=== PATIENT | male | born 1935 | race Caucasian/White ===

== ENCOUNTER 2021-05-18 14:03 | Emergency (ER) | payer OTHER ==
[~2021-05-18] VITALS: Ht 175.3 cm; Wt 70.3 kg
[2021-05-18 14:38] LABS: BASOPHILS ABSOLUTE AUTO 0.03 K/mm3 (0.00-0.23); BASOPHILS PERCENT AUTO 0 % (0-2); EOSINOPHILS ABSOLUTE AUTO 0.29 K/mm3 (0.00-0.68); EOSINOPHILS PERCENT AUTO 4 % (0-6); Hematocrit 43.2 % (37.0-53.0); Hemoglobin 14.5 g/dL (13.5-17.5); IMMATURE GRAN ABSOLUTE AUTO 0.02 K/mm3 (0.00-0.10); IMMATURE GRAN PERCENT AUTO 0 % (0-1); LYMPHOCYTES ABSOLUTE AUTO 1.45 K/mm3 (0.84-5.20); LYMPHOCYTES PERCENT AUTO 21 % (21-46); MONOCYTES PERCENT AUTO 13 % (4-13); Mean Corpuscular HGB 31.5 pg (26.0-34.0); Mean Corpuscular HGB Conc 33.6 g/dL (31.5-36.5); Mean Corpuscular Volume 94 fL (80-100); Mean Platelet Volume 9.4 fL (9.1-12.4); NEUTROPHILS PERCENT AUTO 62 % (41-73); Platelet Count 284 K/mm3 (150-400); RDW Coefficient Variation 13.5 % (11.7-14.2); White Blood Cell Count 6.99 K/mm3 (4.00-11.30)
[2021-05-18 15:05] LABS: Alanine Aminotransfer (ALT/SGP 36 U/L (12-78); Albumin, Blood 3.2 g/dL (3.4-5.0); Albumin/Globulin Ratio 0.7 (0.8-1.8); Alk Phos 98 U/L (50-136); Anion Gap 6 mmol/L (6-16); Aspartate Aminotrans (AST/SGOT 69 U/L (12-37); Bilirubin, Total 0.5 mg/dL (0.1-1.0); Blood Urea Nitrogen 23 mg/dL (8-24); Bun/Creatinine Ratio 38.7 (12.0-20.0); CO2, Blood 28 mmol/L (21-32); Calcium, Blood 9.2 mg/dL (8.5-10.1); Chloride, Blood 107 mmol/L (98-108); Creatinine, Blood 0.59 mg/dL (0.60-1.20); Globulin, Blood 4.3 g/dL (2.2-4.0); Glomerular Filtration Rate >60 (60-); Glucose, Blood 108 mg/dL (70-99); Potassium, Blood 3.7 mmol/L (3.5-5.5); Sodium, Blood 141 mmol/L (136-145); Total Protein, Blood 7.5 g/dL (6.4-8.2)
[2021-05-18 15:20] LABS: CPK Creatine Kinase 1453 U/L (39-308)
[2021-05-18 15:43] LABS: Creatine Kinase MB 35.9 ng/mL (0.0-3.6); Creatine Kinase MB Index 2.5 (0.0-4.0)
[2021-05-18 20:55] LABS: Source, Urine Clean Catch
[2021-05-18 20:58] LABS: Appearance, Urine Clear (Clear); Bilirubin, Urine Neg (Neg); Blood, Urine Neg (Neg); Color, Urine Yellow (P-Yellow); Glucose Qualitative, Urine Neg (Neg); Ketones, Urine 2+ (Neg); Leukocyte Esterase, Urine Neg (Neg); Nitrite, Urine Neg (Neg); Protein, Urine 1+ (Neg); Specific Gravity, Urine 1.025 (1.003-1.022); Urobilinogen, Urine 1+ (Normal)
== END 2021-05-18 22:00 | disposition home or self-care (01) ==
LOC: ER 14:03
PROVIDERS: Physician Assistant
DX: M54.9 Dorsalgia, unspecified (principal); E03.9 Hypothyroidism, unspecified; R62.7 Adult failure to thrive
CPT/HCPCS: 80053; 82550; 82553; 83690; 84484; 85025; 93005; 93010; 99283-25; J7030

== ENCOUNTER 2021-05-29 14:28 | Emergency (ER) | payer OTHER ==
[~2021-05-29] VITALS: Ht 175.3 cm; Wt 72.6 kg
[2021-05-29 15:30] LABS: BASOPHILS ABSOLUTE AUTO 0.04 K/mm3 (0.00-0.23); BASOPHILS PERCENT AUTO 1 % (0-2); EOSINOPHILS ABSOLUTE AUTO 0.19 K/mm3 (0.00-0.68); EOSINOPHILS PERCENT AUTO 3 % (0-6); Hematocrit 41.9 % (37.0-53.0); Hemoglobin 13.9 g/dL (13.5-17.5); IMMATURE GRAN ABSOLUTE AUTO 0.02 K/mm3 (0.00-0.10); IMMATURE GRAN PERCENT AUTO 0 % (0-1); LYMPHOCYTES ABSOLUTE AUTO 1.76 K/mm3 (0.84-5.20); LYMPHOCYTES PERCENT AUTO 30 % (21-46); MONOCYTES ABSOLUTE AUTO 0.66 K/mm3 (0.16-1.47); MONOCYTES PERCENT AUTO 11 % (4-13); Mean Corpuscular HGB 31.7 pg (26.0-34.0); Mean Corpuscular HGB Conc 33.2 g/dL (31.5-36.5); Mean Corpuscular Volume 96 fL (80-100); Mean Platelet Volume 9.6 fL (9.1-12.4); NEUTROPHILS ABSOLUTE AUTO 3.21 K/mm3 (1.96-9.15); NEUTROPHILS PERCENT AUTO 55 % (41-73); Platelet Count 312 K/mm3 (150-400); RDW Coefficient Variation 13.6 % (11.7-14.2); RDW Standard Deviation 48.4 fL (35.1-46.3); Red Blood Cell Count 4.38 M/mm3 (4.30-5.90); White Blood Cell Count 5.88 K/mm3 (4.00-11.30)
[2021-05-29 15:49] LABS: Alanine Aminotransfer (ALT/SGP 32 U/L (12-78); Albumin, Blood 3.1 g/dL (3.4-5.0); Albumin/Globulin Ratio 0.8 (0.8-1.8); Alk Phos 93 U/L (50-136); Anion Gap 4 mmol/L (6-16); Aspartate Aminotrans (AST/SGOT 23 U/L (12-37); Bilirubin, Total 0.5 mg/dL (0.1-1.0); Blood Urea Nitrogen 21 mg/dL (8-24); Bun/Creatinine Ratio 35.2 (12.0-20.0); CO2, Blood 28 mmol/L (21-32); Calcium, Blood 8.9 mg/dL (8.5-10.1); Chloride, Blood 108 mmol/L (98-108); Globulin, Blood 3.8 g/dL (2.2-4.0); Glomerular Filtration Rate >60 (60-); Glucose, Blood 105 mg/dL (70-99); Potassium, Blood 3.6 mmol/L (3.5-5.5); Sodium, Blood 140 mmol/L (136-145); Thyroid Stimulating Hormone 0.963 uIU/mL (0.360-4.800); Total Protein, Blood 6.9 g/dL (6.4-8.2)
[2021-05-29 16:37] LABS: Source, Urine Catheter
[2021-05-29 16:51] LABS: Appearance, Urine Clear (Clear); Bilirubin, Urine Neg (Neg); Blood, Urine Neg (Neg); Color, Urine Yellow (P-Yellow); Glucose Qualitative, Urine Neg (Neg); Ketones, Urine 2+ (Neg); Leukocyte Esterase, Urine 1+ (Neg); Nitrite, Urine Neg (Neg); Protein, Urine Neg (Neg); Urobilinogen, Urine NORM (Normal); pH, Urine 6.5 (5.0-8.0)
[2021-05-29 17:06] LABS: Bacteria Mod /hpf; Calcium Oxalate Crystals Mod /hpf; Red Blood Cells, Urine Not Seen /hpf (0-2); Squamous Epithelial Cells Rare /hpf (Few); White Blood Cells, Urine 0-2 /hpf (0-5)
[2021-05-29 17:07] LABS: Hyaline Casts 0-2 /lpf (0-2); Mucus Light (0-Heavy)
[2021-05-29] MEDS ORDERED: MINOCYCLINE HC100 M2 PO (17:49)
== END 2021-05-29 18:20 | disposition home or self-care (01) ==
LOC: ER 14:28
PROVIDERS: Emergency Medicine
DX: M54.2 Cervicalgia (principal); M54.5 Low back pain; E03.9 Hypothyroidism, unspecified
CPT/HCPCS: 70450; 72100; 72125; 80053; 81001; 84443; 85025; 87070; 87075; 87086; 87205; 93005; 93010; 99284-25; A9270

== ENCOUNTER 2023-02-23 10:57 | Inpatient (IN) | payer OTHER ==
[~2023-02-23] VITALS: Ht 172.7 cm; Wt 64.6 kg
[~2023-02-23 10:57] MED LIST: MINOCYCLINE HC100 M2 PO
[2023-02-23 11:54] LABS: Source, Urine Straight Cath
[2023-02-23 12:05] LABS: Appearance, Urine Clear (Clear); Bilirubin, Urine Neg (Neg); Blood, Urine 5+ (Neg); Color, Urine Amber (P-Yellow); Glucose Qualitative, Urine Neg (Neg); Ketones, Urine 4+ (Neg); Leukocyte Esterase, Urine Neg (Neg); Nitrite, Urine Neg (Neg); Protein, Urine 2+ (Neg); Specific Gravity, Urine 1.025 (1.003-1.022); Urobilinogen, Urine NORM (Normal)
[2023-02-23 12:13] LABS: Bacteria Few /hpf; Red Blood Cells, Urine TNTC /hpf (0-2); Squamous Epithelial Cells Not Seen /hpf (Few); Transitional Epithelial Cells Few /hpf (0-Rare); White Blood Cells, Urine 0-2 /hpf (0-5)
[2023-02-23 13:09] LABS: Influenza A, PCR NEGATIVE (NEGATIVE); Influenza B, PCR NEGATIVE (NEGATIVE); Resp Syncytial Virus, PCR NEGATIVE (NEGATIVE); SARS-Cov-2 (COVID-19) PCR, MMC NEGATIVE (NEGATIVE)
[2023-02-23 13:48] LABS: BASOPHILS ABSOLUTE AUTO 0.04 K/mm3 (0.00-0.23); BASOPHILS PERCENT AUTO 1 % (0-2); Creatine Kinase MB 33.2 ng/mL (0.0-3.6); EOSINOPHILS ABSOLUTE AUTO 0.03 K/mm3 (0.00-0.68); EOSINOPHILS PERCENT AUTO 0 % (0-6); Hematocrit 46.4 % (37.0-53.0); Hemoglobin 16.2 g/dL (13.5-17.5); IMMATURE GRAN ABSOLUTE AUTO 0.07 K/mm3 (0.00-0.10); IMMATURE GRAN PERCENT AUTO 1 % (0-1); LYMPHOCYTES ABSOLUTE AUTO 1.11 K/mm3 (0.84-5.20); LYMPHOCYTES PERCENT AUTO 14 % (21-46); MONOCYTES ABSOLUTE AUTO 0.68 K/mm3 (0.16-1.47); MONOCYTES PERCENT AUTO 9 % (4-13); Mean Corpuscular HGB 31.4 pg (26.0-34.0); Mean Corpuscular HGB Conc 34.9 g/dL (31.5-36.5); Mean Corpuscular Volume 90 fL (80-100); NEUTROPHILS ABSOLUTE AUTO 5.86 K/mm3 (1.96-9.15); NEUTROPHILS PERCENT AUTO 75 % (41-73); RDW Coefficient Variation 13.9 % (11.7-14.2); RDW Standard Deviation 46.3 fL (35.1-46.3); Red Blood Cell Count 5.16 M/mm3 (4.30-5.90); White Blood Cell Count 7.79 K/mm3 (4.00-11.30)
[2023-02-23 13:54] LABS: Free Thyroxine 1.32 ng/dL (0.70-1.60); Thyroid Stimulating Hormone 1.93 uIU/mL (0.360-4.800)
[2023-02-23 14:19] LABS: Platelet Count 371 K/mm3 (150-400)
[2023-02-23 14:30] LABS: Albumin, Blood 2.7 g/dL (3.4-5.0); Albumin/Globulin Ratio 0.6 (0.8-1.8); Bilirubin, Total 0.7 mg/dL (0.1-1.0); Bun/Creatinine Ratio 45.5 (12.0-20.0); Calcium, Blood 8.8 mg/dL (8.5-10.1); Creatine Kinase MB Index 2.6 (0.0-4.0); Creatinine, Blood 0.53 mg/dL (0.60-1.20); Globulin, Blood 4.3 g/dL (2.2-4.0); Potassium, Blood 3.7 mmol/L (3.5-5.5)
[2023-02-23] MEDS ORDERED: FLOMAX0.4 MG (18:19)
[2023-02-23] MEDS ORDERED: LEVSOD75 PO (18:19)
[2023-02-23 19:30] VITALS: BP 107/76
[2023-02-24] MEDS ORDERED: Vitamin D1000 UNI1 PO (02:23)
[2023-02-24] MEDS ORDERED: OMEGA-3 FISH O1 EAC6 PO (02:23)
[2023-02-24] MEDS ORDERED: POTA10T PO (02:23)
[2023-02-24] MEDS ORDERED: OMEP20ER PO (02:24)
[2023-02-24] MEDS ORDERED: TAMS.4ER PO (02:25)
[2023-02-24] MEDS ORDERED: LATA.005SO BOTHEYES (02:25)
[2023-02-24] MEDS ORDERED: MULVITA PO (02:25)
[2023-02-24] MEDS ORDERED: TIMO.5OPSO BOTHEYES (02:26)
[2023-02-24] MEDS ORDERED: FURO20 PO (02:26)
[2023-02-24] MEDS ORDERED: SIMBRINZA 1%-0.28 M1 BOTHEYES (02:26)
[2023-02-24] MEDS ORDERED: B-121000 MC7 PO (02:30)
[2023-02-24] MEDS ORDERED: Methocarbamol500 MG PO (02:30)
[2023-02-24] MEDS ORDERED: CALCIUM 500 MG1 EAC2 PO (02:31)
[2023-02-24] MEDS ORDERED: FINA5 PO (02:32)
[2023-02-24] MEDS ORDERED: CALAZIME TOP (02:34)
[2023-02-24] MEDS ORDERED: LIDO700A20 TOP (02:35)
[2023-02-24 04:28] VITALS: BP 152/87
--- NOTE | 2023-02-24 04:52 | NUR ---
PT TRANSFERS TO [facility], MAX ASSIST WITH GB. AO, FOLLOWS COMMANDS, CONTINENT. MONITOR SWALLOWING, PILLS "WENT DOWN WRONG PIPE" DURING 2099 MED PASS. 1 PILL AT A TIME AND SIT UP STRAIGHT. VSS ON RA. NO MAJOR CHANGES NOTED DURING SHIFT.
[2023-02-24 05:00] LABS: BASOPHILS ABSOLUTE AUTO 0.03 K/mm3 (0.00-0.23); BASOPHILS PERCENT AUTO 0 % (0-2); EOSINOPHILS ABSOLUTE AUTO 0.05 K/mm3 (0.00-0.68); EOSINOPHILS PERCENT AUTO 1 % (0-6); Hematocrit 41.1 % (37.0-53.0); Hemoglobin 14.1 g/dL (13.5-17.5); IMMATURE GRAN ABSOLUTE AUTO 0.04 K/mm3 (0.00-0.10); IMMATURE GRAN PERCENT AUTO 1 % (0-1); LYMPHOCYTES ABSOLUTE AUTO 1.05 K/mm3 (0.84-5.20); LYMPHOCYTES PERCENT AUTO 15 % (21-46); MONOCYTES ABSOLUTE AUTO 0.73 K/mm3 (0.16-1.47); MONOCYTES PERCENT AUTO 10 % (4-13); Mean Corpuscular HGB 31.4 pg (26.0-34.0); Mean Corpuscular HGB Conc 34.3 g/dL (31.5-36.5); Mean Corpuscular Volume 92 fL (80-100); Mean Platelet Volume 8.8 fL (9.1-12.4); NEUTROPHILS ABSOLUTE AUTO 5.25 K/mm3 (1.96-9.15); NEUTROPHILS PERCENT AUTO 73 % (41-73); Platelet Count 324 K/mm3 (150-400); RDW Coefficient Variation 14.1 % (11.7-14.2); Red Blood Cell Count 4.49 M/mm3 (4.30-5.90); White Blood Cell Count 7.15 K/mm3 (4.00-11.30)
[2023-02-24 06:03] LABS: Bun/Creatinine Ratio 45.5 (12.0-20.0); Calcium, Blood 8.7 mg/dL (8.5-10.1); Creatinine, Blood 0.55 mg/dL (0.60-1.20); Potassium, Blood 3.4 mmol/L (3.5-5.5)
[2023-02-24 07:34] VITALS: BP 130/78
--- NOTE | 2023-02-24 11:00 | NUR ---
Received pt's AD back from the [facility]. Placed a copy on pt's chart and sent a copy to medical records. Attempted to make a patient visit to discuss code status. No POLST on file at [facility]. Pt is currently working with therapy at this time. Will plann to make a visit at a better time to discuss code statys wishes.
--- NOTE | 2023-02-24 11:58 | NUR ---
PT IS LETHARGIC BUT OBEYS COMMAND. PT REPORTS NOT EATING IN 4 DAYS. MD NOTIFIED. PLS SEE ORDERS. SPEECH EVAL INDICATE PT SHOULD BE NPO.
[2023-02-24 16:41] VITALS: BP 128/80
--- NOTE | 2023-02-24 17:01 | NUR ---
ATTEMPTED TO PLACE NG TUBE FOR FEEDING AND MEDICATION. ALL ATTEMPTS WERE UNSUCESSFUL. MD NOTIFIED. PLAN TO PLACE PICC LINE IN MORNING 02/25.
--- NOTE | 2023-02-24 19:21 | NUR ---
SHIFT SUMMARY PT IS AROUSABLE TO VOICE. LETHARGIC. BLADDER SCAN SHOWED 217 ML PT VOIDED 100 ML SOON AFTER. BLOOD GLUCOSE 95. PICC LINE IS TO BE PLACED TOMORROW MORNING. LARGE HARD BM EARLY THIS MORNING. PT PLACED ON NPO FOR ASPIRATION PRECAUTIONS. WAITING FOR MED LIST FROM MA. FAXED 02/24.
[2023-02-24 19:30] VITALS: BP 109/70
[2023-02-25 00:23] VITALS: BP 136/81
[2023-02-25 04:46] VITALS: BP 142/85
[2023-02-25 05:54] LABS: BASOPHILS ABSOLUTE AUTO 0.05 K/mm3 (0.00-0.23); BASOPHILS PERCENT AUTO 1 % (0-2); EOSINOPHILS ABSOLUTE AUTO 0.15 K/mm3 (0.00-0.68); EOSINOPHILS PERCENT AUTO 2 % (0-6); Hemoglobin 13.8 g/dL (13.5-17.5); IMMATURE GRAN ABSOLUTE AUTO 0.05 K/mm3 (0.00-0.10); IMMATURE GRAN PERCENT AUTO 1 % (0-1); LYMPHOCYTES ABSOLUTE AUTO 1.37 K/mm3 (0.84-5.20); LYMPHOCYTES PERCENT AUTO 21 % (21-46); MONOCYTES PERCENT AUTO 11 % (4-13); Mean Corpuscular HGB 31.9 pg (26.0-34.0); Mean Corpuscular HGB Conc 34.5 g/dL (31.5-36.5); Mean Corpuscular Volume 92 fL (80-100); Mean Platelet Volume 8.6 fL (9.1-12.4); NEUTROPHILS ABSOLUTE AUTO 4.25 K/mm3 (1.96-9.15); NEUTROPHILS PERCENT AUTO 65 % (41-73); Platelet Count 322 K/mm3 (150-400); RDW Coefficient Variation 14.5 % (11.7-14.2); RDW Standard Deviation 49.5 fL (35.1-46.3); Red Blood Cell Count 4.33 M/mm3 (4.30-5.90); White Blood Cell Count 6.57 K/mm3 (4.00-11.30)
[2023-02-25 06:24] LABS: Bun/Creatinine Ratio 46.2 (12.0-20.0); Calcium, Blood 9.1 mg/dL (8.5-10.1); Creatinine, Blood 0.5 mg/dL (0.60-1.20); Magnesium, Blood 2.2 mg/dL (1.6-2.4); Phosphorus, Blood 1.9 mg/dL (2.5-4.9); Potassium, Blood 3.2 mmol/L (3.5-5.5)
--- NOTE | 2023-02-25 06:28 | NUR ---
PT WAS LETHARGIC, DIFFICULT TO WAKE FOR FIRST HALF OF SHIFT, MORE ALERT AND ORIENTED AFTER MIDNIGHT. CONTINUES TO SUCTION INDEPENDENTLY, REQUIRES MAX ASSIST FOR STANDING, REPOSITIONING IN BED. PENDING PICC PLACEMENT FOR NUTRITION. VSS. NPO MAINTAINED FOR SHIFT.
--- NOTE | 2023-02-25 07:56 | NUR ---
PT UP TO THE BEDSIDE TO USE URINAL. CLOSED BLISTER NOTED ON LOWER LEFT FLANK AND OPEN AREA TO THE UPPER LEFT BACK BEHIND AXILLA.
[2023-02-25 08:02] VITALS: BP 158/91
--- NOTE | 2023-02-25 11:08 | NUR ---
MD NOTIFIED ABOUT BLISTER AND OPEN BLISTERED AREA. MD AT BEDSIDE. BLANCHABLE REDNESS ON RIGHT HIP ALSO NOTED REDDEND AREA ON COCCYX. PICTURES IN CHART. MEPILEX APPLIED TO HIP AND COCCYX. NON ADHESIVE DRESSING APPLIED TO BLISTER/OPEN BLISTERED AREAS. TURNING PT Q 2HRS WITH PILLOW SUPPORT. PT STATES THAT HE LIKE TO STAY IN A UPRIGHT POSITION. EDUCATED THE PT ON THE IMPORTANCE OF SHIFTING WEIGHT EVERY 2 HOURS TO RELIEVE PRESSURE ON HIS BODY/SKIN.
--- NOTE | 2023-02-25 13:34 | NUR ---
Initial palliative care consult: Philip is an 87 year old with a history of macular degeneration, hypothyroidism, osteopenia, BPH and kyphosis. He was admitted on 02/23/23 after being found down at home. Unclear about how long he was down at home. He reports that he hadn't eaten in four days. He had difficultly swallowing pills once admitted. He had a swallow eval done and he failed the swallow eval. He is followed by the [facility] home based primary care program. He lives alone in [facility]. He has [facility] contracted caregivers 3 days per week 2 hours each day. Philip reports that his caregivers clean, do laundry and run errands for him. He reports he does his own meal prep. He states some of the things he eats are cottage cheese, yogurt, eggs and cheese. He ambulates with a walker slowly in his apartment. He denies having any difficulty swallowing. He states that the ST person didn't put the food in his mouth correctly and that if he could try again and feed himself he would do "just fine." He denies any difficulty swallowing at home. He also states that he doesn't have trouble walking at home however, he is very week here and unable to turn in bed without assist from staff. He appears quite thin and has some open areas and closed blisters to his back and buttocks and legs. Nursing is aware of open areas and stated that photos will be taken. Phone call to pt's dtr, Tacos. She reports that she and her sister, Coby, assist when able, however they both work full time paramedic. Coby lives in [place] and Tacos lives here locally. Iman states that Philip is very specific about how he likes to eat and drink (only distilled water). She reports that he will not eat in front of the caregivers that come to his home. Tacos also reports that her dad is mistrustful of everyone and that he is the only one who knows how to do things correctly. Tacos states this is how he has been her entire life. She states that he has been refusing to go into an assisted living facility aned believes he is able to care for himself. Tacos reports that both sisters are unable to assist more in his care. She has questions about plan of care moving forward. Discussed options for care. Currently pt is a full code. He had a PICC line placed this morning for TPN as a dubhoff was attempted several times yesterday and was unsuccessful. Discussed treatment option with rehab with improved swallow, new baseline with deficits and comfort care should his swallow not return and no PEG tube chosen. His AD on file at the [facility] would likely exclude the PEG as an option. A copy of his AD is on his chart. Tacos has some post discharge facility and financial questions. Will have CM speak with her re: those specific facility and financial questions. Coby is coming down from [place] this afternoon. Tacos and Coby will be here tomorrow and will have PC and CM meet with them to discuss goals of care, code status discussion and answer the facility and financial questions. It is hard to determine if Philip fully understands his current situation. Current plan at this time is PT/OT/ST to work with Philip. A PICC line was placed and pt will start TPN. Tacos's hope is that he will be able to gain strength and improve his functioning with a return of his swallow. Tacos counseled that TPN is a short term type of nutrition. Decisions will need to be made if his swallow doesn't return. PC to continue to follow for advanced care planning.
[2023-02-25 15:49] VITALS: BP 140/74
--- NOTE | 2023-02-25 15:53 | NUR ---
PT IS ALERT AND ORIENTED X3, CONFUSED AND HARD OF HEARING. PT UP TO THE CHAIR FOR 2 HOURS, PT DID SEVERAL SETS OF PT RECOMMENDED EXERCISES. PT FAMILY AT BEDSIDE. Q 2HR TURNS, REPORT GIVEN TO ZENA
--- NOTE | 2023-02-25 17:01 | NUR ---
REPORT RECEIVED FROM DYLAN MEDELLIN AT 1630. ROUNDED ON PT. PT IS A/O SITTING UP IN BED. CALL LIGHT IN REACH.
--- NOTE | 2023-02-25 19:17 | NUR ---
NO CHANGE SINCE RECEIVED REPORT. PT A/O, VSS. CPN STARTED AND PT/PT FAMILY EDUCATED. REPORT PASSED TO JARRELL RN
[2023-02-25 20:01] VITALS: BP 142/72
[2023-02-26 02:39] VITALS: BP 140/75
--- NOTE | 2023-02-26 04:08 | NUR ---
SHIFT SUMMARY; NO ACUTE CHANGES OVERNIGHT. THE PT HAS BEEN RESTING IN BED FOR THE ENTIRETY OF THE NIGHT. THE PT IS AXO X4 AND ON BEDREST. THE PT HAS HAD THICK SECRETIONS OVERNIGHT, BUT THE PT IS ABLE TO SELF SUCTIONS HIS SECERTIONS. TPN REMAINS RUNNING THROUGH THE PTS PICC LINE AT 55MLS/HR. THE PT DENIES ANY SOB, PAIN, CHEST PAIN/PRESSURE OR N/V. CURRENTLY THE PT IS SITTING UP IN BED WITH THE BED IN THE LOWEST POSITION AND THE CALL LIGHT AT BEDSIDE.
[2023-02-26 05:22] LABS: Magnesium, Blood 2.4 mg/dL (1.6-2.4)
[2023-02-26 05:23] LABS: Bun/Creatinine Ratio 48.6 (12.0-20.0); Calcium, Blood 8.8 mg/dL (8.5-10.1); Creatinine, Blood 0.47 mg/dL (0.60-1.20); Phosphorus, Blood 2.4 mg/dL (2.5-4.9); Potassium, Blood 3.5 mmol/L (3.5-5.5)
[2023-02-26 07:10] VITALS: BP 138/87
--- NOTE | 2023-02-26 13:46 | NUR ---
Visit made to bedside after review of EMR and ST visit note. Pt is able to swallow some textures/liquids safely and diet has been advanced. Please see ST assessment note for full details. Pt is calm, very focused on his lunch. Lynne reports that pt is very happy about PO intake. I introduced myself to lynne from [place], who is returning home today. Reviewed pt's AD and his stated wishes previoulsy. Offered to help with getting our documentation and orders in line with pt's AD and gave Coby and sister Tacos (who is not currently present) booklet on advanced care planning to review together prior to completing a POLST with them. Pt kept his head down and over his meal. I attempted to engage him in coversation re: his wishes but he did not participate or seem interested in what we were discussing. Pt appears comfortable at this time. Plan to touch bases with Tacos tomorrow per Coby's request to complete a POLST with her.
[2023-02-26 15:50] VITALS: BP 133/88
--- NOTE | 2023-02-26 16:55 | NUR ---
SHIFT SUMMARY PATIENT IS ALERT BUT FORGETFUL. PATIENT HAS HAD NO ACUTE EVENTS THIS SHIFT. PATIENT HAD A SPEECH EVAL DONE TODAY, PATIENT HAS A PUREE DIET ORDER THAT REPLACED NPO ORDER. PATIENT HAS TOLERATED DIET WELL. TPN STILL RUNNING PER DR BARTLETT ORDER. PATIENT HAS NOT COMPLAINED OF PAIN, NAUSEA, SOB OR VOMITTING THIS SHIFT. BED IN LOCKED AND LOWEST POSITION. CALL LIGHT IN PLACE. WILL MONITOR UNTIL SHIFT CHANGE.
[2023-02-26 19:57] VITALS: BP 126/73
--- NOTE | 2023-02-27 04:00 | NUR ---
SHIFT SUMMARY; NO ACUTE CHANGES OVERNIGHT. THE PT IS AXO X4, BUT VERY [place]. THE PT WAS SITTING UP IN THE BEDSIDE CHAIR FOR THE BEGINNING OF THE SHIFT, HE HAS SINCE BEEN SITTING/LAYING IN BED. HE IS A 1 ASSIST STAND AND PIVOT TO THE BED FROM THE BEDSIDE CHAIR. HE IS ABLE TO INDEPENDENTLY USE THE BEDSIDE URINAL BY SITTING UP ON THE SIDE OF HIS BED. TPN REMAINS RUNNING AT 55MLS/HR THROUGH THE PTS PICC LINE. THE PT DENIES ANY SOB, PAIN, CHEST PAIN/PRESSURE OR N/V. CURRENTLY THE PT IS SLEEPING IN BED WITH THE BED IN THE LOWEST POSITION AND THE CALL LIGHT AT BEDSIDE.
[2023-02-27 05:15] VITALS: BP 127/79
[2023-02-27 05:28] LABS: Bun/Creatinine Ratio 69.4 (12.0-20.0); Calcium, Blood 8.7 mg/dL (8.5-10.1); Creatinine, Blood 0.43 mg/dL (0.60-1.20); Magnesium, Blood 2.5 mg/dL (1.6-2.4); Potassium, Blood 3.8 mmol/L (3.5-5.5)
[2023-02-27 07:03] VITALS: BP 127/77
--- NOTE | 2023-02-27 13:30 | NUR ---
Pal Care visit made to pt and Tacos mejia at bedside. Pt was eating his lunch but was agreeable to some conversation re: his wishes when asked directly. He did not participate in the conversation prior to that. I reviewed pt's Advanced directive, completed at the [facility] in 2019 with jackie. Pt had stated he wanted his surrogate medical decision maker to strictly follow his wishes as outlined in his directive. Pt's cognitive and physical condition have declined in recent years per Tacos. Pt states he does not remember completing his directive or what it says. He was agreeable to reviewing it and discussing his wishes now, in order to complete a POLST form and to be sure his current orders were in agreement with his wishes. When asked about advanced life support and rescusitative efforts pt states that he would not want CPR or intubation if he were found without a heart beat or he could not breathe on his own. He would want to return to the hospital if his condition or s/s could be improved by treatment in the hospital. He has stated consistently, to jackie & in AD, he would not want tube feedings if he could not swallow or take in adequate nutrition to sustain himself. POLST form completed with jackie and pt based on this conversation and his prior AD. T/c to to report on my visit and to request order to change code status. POLST left at room for Dr russell. When completed I will fax copy to [place], send to our Medical Records for scanning and send original and copies with pt for home and for his two daughters that share in helping Tacos and I discussed advanced care planning, alt placement options, durable power of insurance defense attorney, home based primary care thru team at [place] and growing care needs. Tacos is going to try to complete a durable POA and if able will let us know [facility]. She states pt was being set up for home based primary care due to his homebound status and increasing needs. She wondered if she should proceed and I told her yes, and to request assist of [place] elementary school social worker to help her naviage and research options available to pt thru [facility]. Pt lives in a low cost housing appartment and not in [facility] housing as previously thought. He is able to live there based on his income/finances and he received an additional point toward qualification as a . He was on a waiting list for some time to get into this apartment and he has an appointment with the unclaimed property officer to sign another year's lease this week. Tacos and her sister both work real time operator and neither are able to care for pt in their home or provide more assistance than they are at this time. They have attempted to move him to assisted living previously without success due to pt's refusal. Pt denies pain today while eating lunch. He is pleasant and appears to be in good spirits today. He is very [place] and conversation must be close and direct, with simple explanations/questions. Plan to f/u on POLST tomorrow. changed code status to DNR in EMR.
[2023-02-27 15:15] VITALS: BP 113/73
--- NOTE | 2023-02-27 16:35 | NUR ---
SHIFT SUMMARY PT AOX4, INDEPENDENT WITH THE URINAL, 2P TO THE CHAIR. PT HAS STAYED IN BED ALL SHIFT, REFUSING TO GET IN THE CHAIR. HE IS DETERMINED TO DO MUCH ON HIS OWN POSSIBLE. HIS TPN WAS DISCONTINUED, FINISHING THE REST IN THE BAG. PHARMACY HAS BEEN NOTIFIED. PLAN IS FOR HIM TO D/C TO A REHAB, UNSURE TO WHICH REHAB THAT WILL BE. HE HAS BEEN TOLERATING HIS MEDICATIONS IN APPLESAUCE WELL AND EATING A MAJORITY OF HIS PUREE DIET. ORAL CARE HAS BEEN DONE THIS SHIFT. CALL LIGHT WITHIN REACH, BED IN LOWEST POSITION. WILL REPORT TO ONCOMING NURSE.
[2023-02-27 21:14] VITALS: BP 105/66
[2023-02-28 04:02] VITALS: BP 134/86
--- NOTE | 2023-02-28 04:03 | NUR ---
SHIFT SUMMARY; NO ACUTE CHANGES OVERNIGHT. THE PT HAS BEEN RESTING IN BED FOR THE ENTIRETY OF THE NIGHT. ORAL CARE DONE, CHG BATH DONE, DRESSING AND MEPILEX CHANGED WELL THE PT GOT A NEW GOWN AND SOCKS. THE PT DENIES ANY PAIN, SOB, CHEST PAIN/PRESSURE OR N/V. CURRENTLY THE PT IS RESTING IN BED WITH THE BED IN THE LOWEST POSITION AND THE CALL LIGHT AT BEDSIDE.
[2023-02-28 07:30] VITALS: BP 143/90
[2023-02-28 15:01] VITALS: BP 94/70
--- NOTE | 2023-02-28 16:02 | NUR ---
Pt has continued to do well with PO intake. In the morning the pt was alert, oriented, slow to answer but appropriate at all times. Most of time spent today was for case conferences and primarily focused assisting pt/lynne with completing a durable POA. Once notorized and completed, copies sent to medical records and extra copies made for lynne. Pt's POLST had also been fully signed by provider and that was given to lynne with copies for her, chart and medical records. Pt has been accepted to SNF and d/c arrangements pending per . Lynne verbalized feeling overwhelmed with all dad's personal/financial matters, changing care needs, applications for living arrangements/housing. Pt was very fatigued and sleepy after lunch and the work of completing POA with lynne and notary. He was able to tell the Notary that he understood he was completing a power of diamond driller on the second attempt. I believe his inability to do so the first time was due to his severe hearing deficit and his extreme fatigue.
--- NOTE | 2023-02-28 18:02 | NUR ---
SHIFT SUMMARY NO ACUTE CHANGES THIS SHIFT, PT USING THE URINAL INDEPENDENTLY AT THE BS. POSSIBLE DISCHARGE TOMORROW TO A LOCAL SNIF. DAUGHTER, MOISE, IS NOW THE POA. THE PAPERWORK WAS COMPLETED TODAY. TOLERATING PUREE DIET WELL, EATING A MAJORITY IF NOT ALL OF THE MEALS. WILL REPORT TO ONCOMING NURSE.
[2023-03-01 02:39] VITALS: BP 125/82
--- NOTE | 2023-03-01 06:32 | NUR ---
CLINICAL NURSING MANAGER SUMMARY ASSUMED CARE OF THE PT AT 1900. HE IS ALERT AND ORIENTED X4, ABLE TO SIT AT BEDSIDE INDEPENDENTLY TO USE URINAL BUT USES CALL LIGHT APPROPRIATELY. PT HAD VERY LARGE BROWN BM ON THE COMMODE THIS SHIFT. NO REPORTS OF PAIN TO THIS RN. PLAN FOR PT TO DISCHARGE TO REHAB FACILITY TO IMPROVE MOVEMENT. 2P MAX ASSIST WHEN GETTING UP.
[2023-03-01 07:24] VITALS: BP 128/75
[2023-03-01 12:38] LABS: SARS-Cov-2 (COVID-19) PCR, MMC Negative (NEGATIVE)
[2023-03-01] MEDS ORDERED: Acetaminophen650 M1 PO (12:50)
[2023-03-01] MEDS ORDERED: DOCU100 PO (12:50)
[2023-03-01] MEDS ORDERED: MIRALAX17 GM PO (12:51)
[2023-03-01] MEDS ORDERED: SENNA LAXATIVE8.6 MG PO (12:51)
[2023-03-01] MEDS ORDERED: GUAI600T33 PO (12:51)
[2023-03-01] MEDS ORDERED: ENOX40I SC (12:51)
[2023-03-01] MEDS ORDERED: OCUVITE PO (12:53)
--- NOTE | 2023-03-01 14:30 | NUR ---
Philip was sitting up on the EOB when this handbook writer entered his room. He just finished his lunch. He states he is doing well. Reports he feels "full" after eating his lunch. PICC line was discontinued and he is planning to discharge to rehab [place] [id number] today. No family currently in his room. No requests.
[2023-03-01 14:33] VITALS: BP 106/71
--- NOTE | 2023-03-01 15:45 | NUR ---
DISCHARGED TO [facility]. REPORT GIVEN OVER PHONE TO NURSE, ERIC. KOKO JONES'Marino. PT HELPED TO DRESS. ALL BELONGINGS, INCLUDING WALKER, SENT WITH PT. PT TAKEN BY TRANSPORT VIA WHEELCHAIR. DISCHARGE PACKET GIVEN TO TRANSPORTER WITH INSTRUCTIONS TO GIVE TO [facility].
== END 2023-03-01 15:19 | DRG 558 ==
LOC: ER 10:57 → MEDS 16:25 → ENPENDDIS 03-01 10:42 → MEDS 03-01 15:19
PROVIDERS: Emergency Medicine; Internal Medicine; ADMIT Internal Medicine
PROC: 02HV33Z Insertion of Infusion Device into Superior Vena Cava, Percutaneous Approach (ICD-10-PCS; principal; 2023-02-24)
DX: M62.82 Rhabdomyolysis (principal); H40.9 Unspecified glaucoma; H35.30 Unspecified macular degeneration; Z51.5 Encounter for palliative care; Z20.822 Contact with and (suspected) exposure to COVID-19; E03.9 Hypothyroidism, unspecified; M54.9 Dorsalgia, unspecified; G89.29 Other chronic pain; M85.80 Other specified disorders of bone density and structure, unspecified site; E87.6 Hypokalemia; E86.0 Dehydration; R13.10 Dysphagia, unspecified; E83.39 Other disorders of phosphorus metabolism; N40.0 Benign prostatic hyperplasia without lower urinary tract symptoms; Z98.41 Cataract extraction status, right eye; Z98.42 Cataract extraction status, left eye; Z79.890 Hormone replacement therapy; Z79.899 Other long term (current) drug therapy; W01.0XXA Fall on same level from slipping, tripping and stumbling without subsequent striking against object, initial encounter
CPT/HCPCS: 0241U; 36415; 70450; 71045; 71046; 72131; 72170; 80048; 80053; 81001; 82550; 82553; 82947; 83735; 84100; 84439; 84443; 85025; 92526; 92610; 96360; 96361; 96372; 97110; 97162; 97166; 97530; 97535; 99285-25; A9270; G0378; J1650; J3411; J7030; J7060; U0004